=== PATIENT | male | born 1970 | race Two or more races ===

== ENCOUNTER 2016-08-01 17:15 | Emergency (ER) | payer OTHER ==
[2016-08-01] MEDS ORDERED: ALBUTEROL/IPRATROPIUM 2.5/0.5 MG 3 ML/EACH DOSE ONE (18:13)
--- NOTE | 2016-08-01 18:46 | RAD ---
08/01/2016 6:43 PM CHEST - 2 VIEWS History: Shortness of breath and cough for 2 days Comparison: None Findings: Two views of the chest are obtained. The lungs are clear with out effusion or pneumothorax. The cardiomediastinal silhouette is unremarkable.. The osseous structures are intact.. IMPRESSION: No acute intrathoracic process.
== END 2016-08-01 18:58 | disposition home or self-care (01) ==
LOC: ED 17:15
DX: J06.9 Acute upper respiratory infection, unspecified (principal); J40 Bronchitis, not specified as acute or chronic